=== PATIENT | female | born 1935 | race Caucasian/White ===

== ENCOUNTER → 2017-04-28 | Outpatient (CLI) | payer OTHER ==
[~2017-04-28] MED LIST: BENICAR20 MG PO; GABAPENTIN100 MG PO; LIVALO2 MG PO; NAPROSYN500 MG PO; SYNTHROID50 MCG PO; TOPROL XL25 MG PO; TRAMADOL HCL50 MG PO
== END ==
LOC: RAD 03:14
DX: Z12.31 Encounter for screening mammogram for malignant neoplasm of breast (principal)

== ENCOUNTER → 2018-06-11 | Outpatient (CLI) | payer OTHER | LOC: RAD 10:26 | DX: Z12.31 Encounter for screening mammogram for malignant neoplasm of breast (principal) ==